=== PATIENT | male | born 1960 ===

== ENCOUNTER → 2019-07-07 | Outpatient (CLI) | payer BC, OTHER ==
[~2019-07-07] MED LIST: AMLO5 PO; ASPI81EC PO; ATOR20 PO; GLIP2.5ER PO; HUMALOG KW200 UNIT/1 SQ; HYDACE5 PO; INSLIS75I SC; INSULANPEN; LEVSOD100 PO; LOSA25 PO; METF500C PO; VITAMIN D5000 UNIT PO
[2019-07-07 17:51] LABS: Alanine Aminotransfer (ALT/SGP 38 U/L (12-78); Albumin, Blood 3.9 g/dL (3.4-5.0); Albumin/Globulin Ratio 0.8 (0.8-1.8); Alk Phos 78 U/L (40-126); Anion Gap 11 mmol/L (6-16); Aspartate Aminotrans (AST/SGOT 33 U/L (12-37); Bilirubin, Total 0.6 mg/dL (0.1-1.0); Blood Urea Nitrogen 20 mg/dL (8-24); Bun/Creatinine Ratio 19.6 (12.0-20.0); CO2, Blood 26 mmol/L (21-32); Calcium, Blood 8.9 mg/dL (8.5-10.1); Chloride, Blood 102 mmol/L (98-108); Creatinine, Blood 1.02 mg/dL (0.60-1.20); Globulin, Blood 4.7 g/dL (2.2-4.0); Glomerular Filtration Rate >60 (60-); Glucose, Blood 79 mg/dL (70-99); Potassium, Blood 3.5 mmol/L (3.5-5.5); Sodium, Blood 139 mmol/L (136-145); Total Protein, Blood 8.6 g/dL (6.4-8.2)
[2019-07-07 20:13] LABS: Microalb/Creat Ratio UR, Rand 216.993 mg/g (0.000-30.000)
== END ==
LOC: LAB SHORT 17:22 → LAB EV 17:22
PROVIDERS: Nurse Practitioner Family
DX: E11.649 Type 2 diabetes mellitus with hypoglycemia without coma (principal); Z95.2 Presence of prosthetic heart valve
CPT/HCPCS: 36415; 80053; 82043; 82570; 83036; 85610

== ENCOUNTER 2020-11-23 11:38 | Day surgery (SDC) | payer BC, OTHER ==
[~2020-11-23] VITALS: Ht 170.2 cm; Wt 91.6 kg
[~2020-11-23 11:38] MED LIST changes: +Aspir 8181 MG PO; +CAND32 PO; +CARV25 PO; +Coumadin2 MG PO; +Crestor20 MG PO; +ERGO50000 PO; +GLIP10 PO; +GLUCOPHAGE1000 M1 PO; +HYDCHL12.5 PO; +INSULANI SC; +JARDIANCE10 MG PO; +TRAM50 PO; +TRULICITY1.5 MG/0.1 SC
[2020-11-23] MEDS ORDERED: ASPI81CH (12:02)
[2020-11-23] MEDS ORDERED: ENOX40I (12:20)
== END 2020-11-23 14:04 | disposition home or self-care (01) ==
LOC: ORSCSDS 11:38
PROVIDERS: Student in an Organized Health Care Education/Training Program
PROC: 0DBK8ZX Excision of Ascending Colon, Via Natural or Artificial Opening Endoscopic, Diagnostic (ICD-10-PCS; principal; 2020-11-23 12:45)
PROC: 0DB58ZX Excision of Esophagus, Via Natural or Artificial Opening Endoscopic, Diagnostic (ICD-10-PCS; principal; 2020-11-23 12:45)
PROC: 0DBH8ZX Excision of Cecum, Via Natural or Artificial Opening Endoscopic, Diagnostic (ICD-10-PCS; principal; 2020-11-23 12:45)
PROC: 0DB68ZX Excision of Stomach, Via Natural or Artificial Opening Endoscopic, Diagnostic (ICD-10-PCS; principal; 2020-11-23 12:45)
PROC: 0DBL8ZX Excision of Transverse Colon, Via Natural or Artificial Opening Endoscopic, Diagnostic (ICD-10-PCS; principal; 2020-11-23 12:45)
PROC: 0DBN8ZX Excision of Sigmoid Colon, Via Natural or Artificial Opening Endoscopic, Diagnostic (ICD-10-PCS; principal; 2020-11-23 12:45)
PROC: 0DBP8ZX Excision of Rectum, Via Natural or Artificial Opening Endoscopic, Diagnostic (ICD-10-PCS; principal; 2020-11-23 12:45)
DX: R13.10 Dysphagia, unspecified (principal); K29.50 Unspecified chronic gastritis without bleeding; B96.81 Helicobacter pylori [H. pylori] as the cause of diseases classified elsewhere; D12.0 Benign neoplasm of cecum; D12.5 Benign neoplasm of sigmoid colon; Z12.11 Encounter for screening for malignant neoplasm of colon; Z86.010 Personal history of colon polyps; G47.33 Obstructive sleep apnea (adult) (pediatric); I10 Essential (primary) hypertension; E11.9 Type 2 diabetes mellitus without complications; Z79.82 Long term (current) use of aspirin; Z79.4 Long term (current) use of insulin; Z79.899 Other long term (current) drug therapy
CPT/HCPCS: 82947; 88305; 88342; J2704; J7120

== ENCOUNTER 2022-02-01 11:01 | Day surgery (SDC) | payer BC, OTHER ==
[~2022-02-01] VITALS: Ht 170.2 cm; Wt 82.3 kg
[~2022-02-01 11:01] MED LIST changes: +ASPI81CH PO; +ENOX40I
[2022-02-01] MEDS ORDERED: ENOX100I SC (12:02)
--- NOTE | 2022-02-01 12:31 | NUR ---
Ambulatory in Day Surgery History, Chart, Medications and Allergies reviewed before start of procedure. Lungs clear T/O to Auscultation. Pre-Op teaching done. Pt verbalizes understanding.
[2022-02-01 13:24] LABS: International Normalized Ratio 1.04; Prothrombin Time Results 10.9 Sec (9.7-11.5)
--- NOTE | 2022-02-01 18:25 | NUR ---
POST OP: REPORT RECEIVED FROM YARN EXAMINER SKEINS TAMI. PT TO UNIT AT ABOUT 1710. A/O, HTN NOTED, PT ASYMPTOMATIC. OTHERWISE VSS. PLAN TO GIVE ORDERED COREG DOSE. SURGICAL SITE WNL. PT RATES PAIN 5/10, MEDICATED PER EMAR. PT AT BEDSIDE. WILL PASS REPORT TO NOC ARLIN
[2022-02-02 05:43] LABS: BASOPHILS ABSOLUTE AUTO 0.03 K/mm3 (0.00-0.23); BASOPHILS PERCENT AUTO 0 % (0-2); EOSINOPHILS ABSOLUTE AUTO 0.01 K/mm3 (0.00-0.68); EOSINOPHILS PERCENT AUTO 0 % (0-6); Hematocrit 33.4 % (37.0-53.0); Hemoglobin 11.3 g/dL (13.5-17.5); IMMATURE GRAN ABSOLUTE AUTO 0.07 K/mm3 (0.00-0.10); IMMATURE GRAN PERCENT AUTO 1 % (0-1); LYMPHOCYTES ABSOLUTE AUTO 1.65 K/mm3 (0.84-5.20); LYMPHOCYTES PERCENT AUTO 15 % (21-46); MONOCYTES ABSOLUTE AUTO 1.06 K/mm3 (0.16-1.47); MONOCYTES PERCENT AUTO 9 % (4-13); Mean Corpuscular HGB 29.4 pg (26.0-34.0); Mean Corpuscular HGB Conc 33.8 g/dL (31.5-36.5); Mean Corpuscular Volume 87 fL (80-100); Mean Platelet Volume 10.6 fL (9.1-12.4); NEUTROPHILS ABSOLUTE AUTO 8.56 K/mm3 (1.96-9.15); NEUTROPHILS PERCENT AUTO 75 % (41-73); Platelet Count 226 K/mm3 (150-400); RDW Coefficient Variation 13.1 % (11.7-14.2); RDW Standard Deviation 41.1 fL (35.1-46.3); Red Blood Cell Count 3.84 M/mm3 (4.30-5.90); White Blood Cell Count 11.38 K/mm3 (4.00-11.30)
[2022-02-02 06:10] LABS: International Normalized Ratio 1.09; Prothrombin Time Results 11.4 Sec (9.7-11.5)
[2022-02-02 06:19] LABS: Bun/Creatinine Ratio 27.4 (12.0-20.0); Creatinine, Blood 1.06 mg/dL (0.60-1.20); Magnesium, Blood 0.9 mg/dL (1.6-2.4); Potassium, Blood 4.2 mmol/L (3.5-5.5)
--- NOTE | 2022-02-02 06:40 | NUR ---
SUMMARY PT HAS AMBULATED WITH WALKER AND ASSIST.VOIDING WITHOUT DIFF.CBGS STABLE. MAGNESIUM LEVEL REPORTED CRITICAL AT 0.[address] ALFONSO PER ORDER FOR HOSPITALIST MANAGEMENT OF MED ISSUES AND RECEIVED ORDERS FOR MAGNESIUM 2 GRMS IV .
--- NOTE | 2022-02-02 12:00 | NUR ---
DISCHARGE SUMMARY PT A&OX4, VSS/RA, MIRZA PO, VOIDING, AMB SBA FWW/GB, UP TO CHAIR, DRESSED HIMSELF WITH OT ASSIST, PAIN MANAGED. DC INS PROVIDED. PT AND SPOUSE REP UNDERSTANDING THOSE INSTRUCTIONS INCLUDING AQUACEL DRESSING CHANGES, FU WITH CARDIOLOGY RE LOVENOX BRIDGE/COUMADIN RESTART AND LABS, FU WITH SURGEON 2 WKS, OK TO SHOWER, PAIN MANAGEMENT AND OUTPT PHYSICAL THERAPY. IV DC'D. PT LEFT FLOOR VIA WC WITH SN RN TO GO HOME WITH , WITH ALL PERSONAL POSSESSIONS INCLUDING DC PACKET, AQUACEL DRESSINGS AND POLAR MERLIN.
== END 2022-02-02 11:40 | disposition home or self-care (01) ==
LOC: ORSCMMR 11:01 → ORD 14:30 → ORSCMMR 14:30 → SURS 17:26 → ORSCMMR 02-02 11:40
PROVIDERS: Orthopaedic Surgery
PROC: 0SR90JA Replacement of Right Hip Joint with Synthetic Substitute, Uncemented, Open Approach (ICD-10-PCS; principal; 2022-02-01 14:30)
DX: M16.11 Unilateral primary osteoarthritis, right hip (principal); I10 Essential (primary) hypertension; E11.9 Type 2 diabetes mellitus without complications; E03.9 Hypothyroidism, unspecified; Z79.84 Long term (current) use of oral hypoglycemic drugs; Z79.899 Other long term (current) drug therapy; Z79.82 Long term (current) use of aspirin
CPT/HCPCS: 36415; 72170; 80048; 82947; 83735; 85025; 85610; 97110; 97116; 97162; 97165; 97530; 97535; A9270; C1713; C1776; J0171; J0690; J0735; J1100; J1650; J1885; J2250; J2370; J2405; J2704; J2795; J3010; J3370; J3475; J7120

== ENCOUNTER 2022-02-12 04:03 | Observation (INO) | payer BC, OTHER ==
[~2022-02-12] VITALS: Ht 170.2 cm; Wt 87.2 kg
[~2022-02-12 04:03] MED LIST changes: +ENOX100I SC
[2022-02-12 04:40] LABS: BASOPHILS ABSOLUTE AUTO 0.03 K/mm3 (0.00-0.23); BASOPHILS PERCENT AUTO 0 % (0-2); EOSINOPHILS PERCENT AUTO 1 % (0-6); Hematocrit 18.3 % (37.0-53.0); Hemoglobin 6.1 g/dL (13.5-17.5); IMMATURE GRAN PERCENT AUTO 1 % (0-1); LYMPHOCYTES PERCENT AUTO 12 % (21-46); MONOCYTES ABSOLUTE AUTO 0.84 K/mm3 (0.16-1.47); MONOCYTES PERCENT AUTO 6 % (4-13); Mean Corpuscular HGB 29.9 pg (26.0-34.0); Mean Corpuscular HGB Conc 33.3 g/dL (31.5-36.5); Mean Corpuscular Volume 90 fL (80-100); Mean Platelet Volume 8.8 fL (9.1-12.4); NEUTROPHILS ABSOLUTE AUTO 10.95 K/mm3 (1.96-9.15); NEUTROPHILS PERCENT AUTO 80 % (41-73); Platelet Count 743 K/mm3 (150-400); RDW Coefficient Variation 13.8 % (11.7-14.2); Red Blood Cell Count 2.04 M/mm3 (4.30-5.90); White Blood Cell Count 13.72 K/mm3 (4.00-11.30)
[2022-02-12 04:55] LABS: International Normalized Ratio 2.08; Prothrombin Time Results 20.8 Sec (9.7-11.5)
[2022-02-12 04:59] LABS: Albumin/Globulin Ratio 0.7 (0.8-1.8); Bilirubin, Total 1.1 mg/dL (0.1-1.0); Bun/Creatinine Ratio 27.5 (12.0-20.0); Calcium, Blood 9.1 mg/dL (8.5-10.1); Creatinine, Blood 1.09 mg/dL (0.60-1.20); Globulin, Blood 4.2 g/dL (2.2-4.0); Potassium, Blood 4.7 mmol/L (3.5-5.5); Total Protein, Blood 7.2 g/dL (6.4-8.2)
--- NOTE | 2022-02-12 14:25 | NUR ---
PT ARRIVED FROM ER TO ROOM 214 AT APPROXIMATELY 1410. PT ALERT ORIENTED AND PLEASANT. PT RATES PAIN AT 4/10 AND DESCRIBES PAIN SORENESS, PT STATES PAIN IS TOLERABLE. PRBCs STARTED IN ER AND RUNNING AT THIS TIME. VSS. WILL CONTINUE TO MONITOR.
--- NOTE | 2022-02-12 15:18 | NUR ---
UNIT OF PRBC COMPLETED. PT TOLERATED WELL. DR. PLUMMER AT THE BEDSIDE. WILL CONTINUE TO MONITOR.
[2022-02-12] MEDS ORDERED: MAGNESIUM GLU27.5 M1 PO (16:59)
[2022-02-12 17:25] LABS: Hematocrit 24.6 % (37.0-53.0); Hemoglobin 8.3 g/dL (13.5-17.5)
--- NOTE | 2022-02-12 19:20 | NUR ---
SHIFT SUMMARY PT ADMITTED FOR A POST-OP HEMATOMA. PAIN HAS BEEN MANAGED WITH PERCOCET SINCE ADMIT. PT IS ON BEDREST UNTIL HE CAN BE EVALUATED TOMORROW MORNING FOR POSSIBLE SURGERY. PT WILL BE NPO AFTER MIDNIGHT. REPORT GIVEN TO DIA OLIVEROS.
[2022-02-13 04:09] LABS: BASOPHILS ABSOLUTE AUTO 0.03 K/mm3 (0.00-0.23); BASOPHILS PERCENT AUTO 0 % (0-2); EOSINOPHILS ABSOLUTE AUTO 0.16 K/mm3 (0.00-0.68); EOSINOPHILS PERCENT AUTO 2 % (0-6); Hematocrit 23.3 % (37.0-53.0); Hemoglobin 7.7 g/dL (13.5-17.5); IMMATURE GRAN ABSOLUTE AUTO 0.07 K/mm3 (0.00-0.10); IMMATURE GRAN PERCENT AUTO 1 % (0-1); LYMPHOCYTES ABSOLUTE AUTO 2.49 K/mm3 (0.84-5.20); LYMPHOCYTES PERCENT AUTO 25 % (21-46); MONOCYTES ABSOLUTE AUTO 0.98 K/mm3 (0.16-1.47); MONOCYTES PERCENT AUTO 10 % (4-13); Mean Corpuscular HGB 30.1 pg (26.0-34.0); Mean Corpuscular Volume 91 fL (80-100); Mean Platelet Volume 8.4 fL (9.1-12.4); NEUTROPHILS ABSOLUTE AUTO 6.19 K/mm3 (1.96-9.15); NEUTROPHILS PERCENT AUTO 62 % (41-73); NRBC ABSOLUTE 0.02 K/mm3 (0.00-0.02); NRBC Auto 0.2 /100 WBC (0.0-0.2); Platelet Count 670 K/mm3 (150-400); RDW Coefficient Variation 14.5 % (11.7-14.2); RDW Standard Deviation 46.4 fL (35.1-46.3); Red Blood Cell Count 2.56 M/mm3 (4.30-5.90); White Blood Cell Count 9.92 K/mm3 (4.00-11.30)
[2022-02-13 04:26] LABS: International Normalized Ratio 1.81; Prothrombin Time Results 18.3 Sec (9.7-11.5)
[2022-02-13 04:27] LABS: Bun/Creatinine Ratio 29.3 (12.0-20.0); Calcium, Blood 8.8 mg/dL (8.5-10.1); Creatinine, Blood 0.96 mg/dL (0.60-1.20); Potassium, Blood 4.2 mmol/L (3.5-5.5)
--- NOTE | 2022-02-13 04:27 | NUR ---
SUMMARY NO NEW ISSUES NOTED. PT PAIN MANAGED WELL THIS SHIFT. PT HAS SLEPT COMFORTABLY FOR MOST OF SHIFT. PT HAS BEEN VOIDING WELL. PT CURRENTLY SLEEPING IN NO DISTRESS. CALL LIGHT IN REACH.
--- NOTE | 2022-02-13 18:16 | NUR ---
SHIFT SUMMARY POD0 R HIP I&D TO CLEAR OUT HEMATOMA FROM POST OP R KYLAH DURING PRIOR ADMIT, A/OX4, VSS, TOLERATING PO POST OP, PAIN TOLERABLE SINCE ARRIVING BACK FROM PACU. R HIP c HEMOVAC IN PLACE, INCISION COVERED WITH GAUZE AND COMPRESSION TAPE, SMALL AMT OF BLOOD IN HEMOVAC CONTAINER TO BE DRAINED AND CHARTED Q8. PT AT BEDSIDE ASSISTING WITH DINNER WHICH WAS TOLERATED WELL. NO ACUTE EVENTS THIS SHIFT, CALL LIGHT IN REACH, WILL CTM AND REPORT TO ONCOMING NOC RN.
--- NOTE | 2022-02-14 05:37 | NUR ---
SUMMARY PT DENIES PAIN. PT HAS RESTED CPMFORTABLY THROUGHOUT SHIFT. PT HEMOVAC IS DRAINING SANGUINOUS FLUID. DRESSING C/D/I. PT VOIDING WELL.
[2022-02-14 06:01] LABS: International Normalized Ratio 1.41; Prothrombin Time Results 14.5 Sec (9.7-11.5)
[2022-02-14 06:04] LABS: BASOPHILS ABSOLUTE AUTO 0.06 K/mm3 (0.00-0.23); BASOPHILS PERCENT AUTO 1 % (0-2); EOSINOPHILS ABSOLUTE AUTO 0.02 K/mm3 (0.00-0.68); EOSINOPHILS PERCENT AUTO 0 % (0-6); Hematocrit 23.5 % (37.0-53.0); Hemoglobin 7.6 g/dL (13.5-17.5); IMMATURE GRAN ABSOLUTE AUTO 0.13 K/mm3 (0.00-0.10); IMMATURE GRAN PERCENT AUTO 1 % (0-1); LYMPHOCYTES ABSOLUTE AUTO 1.98 K/mm3 (0.84-5.20); LYMPHOCYTES PERCENT AUTO 16 % (21-46); MONOCYTES ABSOLUTE AUTO 0.96 K/mm3 (0.16-1.47); MONOCYTES PERCENT AUTO 8 % (4-13); Mean Corpuscular HGB 30.3 pg (26.0-34.0); Mean Corpuscular HGB Conc 32.3 g/dL (31.5-36.5); Mean Corpuscular Volume 94 fL (80-100); Mean Platelet Volume 8.8 fL (9.1-12.4); NEUTROPHILS ABSOLUTE AUTO 9.06 K/mm3 (1.96-9.15); NEUTROPHILS PERCENT AUTO 74 % (41-73); Platelet Count 759 K/mm3 (150-400); RDW Coefficient Variation 14.3 % (11.7-14.2); RDW Standard Deviation 46.5 fL (35.1-46.3); Red Blood Cell Count 2.51 M/mm3 (4.30-5.90); White Blood Cell Count 12.21 K/mm3 (4.00-11.30)
[2022-02-14 06:13] LABS: Bun/Creatinine Ratio 35.3 (12.0-20.0); C-REACTIVE PROTEIN, EXT RANGE 8.77 mg/dL (0.000-0.300); Calcium, Blood 8.5 mg/dL (8.5-10.1); Creatinine, Blood 1.16 mg/dL (0.60-1.20); Magnesium, Blood 2.2 mg/dL (1.6-2.4); Potassium, Blood 4.3 mmol/L (3.5-5.5)
[2022-02-14] MEDS ORDERED: LINE600 PO (11:04)
--- NOTE | 2022-02-14 14:31 | NUR ---
DISCHARGE SUMMARY POD1 R HIP WASHOUT, A/OX4, VSS, TOLERATING PO, AMBULATING c FWW/GB, MINIMAL PAIN MANAGED PER EMAR, SKIN C/D/I, DRESSING CHANGED THIS MORNING BY SURGEON, HEMOVAC REMOVED BY SURGEON DURING DRESSING CHANGE, GENERALIZED EDEMA BLE, DISTAL PULSES PRESENT, LUNGS CLEAR T/O. DISCUSSED DISCHARGE INFORMATION WITH THE PT AND HIS INCLUDING MEDICATIONS EMPHASIZING HIM RESTARTING HIS COUMADIN TODAY, HOME CARE c DRESSING CHANGES AND EXTRA DRESSINGS PROVIDED, AND FOLLOW UP APPOINTMENTS. ALSO DISCUSSED POSTERIOR HIP PRECAUTIONS. IV ACCESS REMOVED, PT ESCORTED OUT VIA WC TO GO HOME.
== END 2022-02-14 11:39 | disposition home or self-care (01) ==
LOC: ER 04:03 → SURS 04:04
PROVIDERS: Emergency Medicine; Orthopaedic Surgery; ADMIT Internal Medicine
DX: M96.840 Postprocedural hematoma of a musculoskeletal structure following a musculoskeletal system procedure (principal); E11.9 Type 2 diabetes mellitus without complications; E03.9 Hypothyroidism, unspecified; I10 Essential (primary) hypertension; D50.0 Iron deficiency anemia secondary to blood loss (chronic); Y83.8 Other surgical procedures as the cause of abnormal reaction of the patient, or of later complication, without mention of misadventure at the time of the procedure; Z79.01 Long term (current) use of anticoagulants; Z79.82 Long term (current) use of aspirin; Z79.84 Long term (current) use of oral hypoglycemic drugs; Z96.643 Presence of artificial hip joint, bilateral; Z86.19 Personal history of other infectious and parasitic diseases; Z95.2 Presence of prosthetic heart valve
CPT/HCPCS: 36415; 36430; 73502; 73701; 80048; 80053; 82947; 83735; 85014; 85018; 85025; 85610; 85651; 86140; 86850; 86900; 86901; 86923; 87071; 87075; 87205; 93971; 96374-59; 96375-59; 97110; 97116; 97162; 97165; 97530; 97535; 99285-25; A9270; J0690; J1170; J1650; J1885; J2250; J2405; J2704; J3010; J3370; J7030; J7120; P9016; Q9967

== ENCOUNTER 2023-03-03 11:12 | Emergency (ER) | payer BC, OTHER ==
[~2023-03-03] VITALS: Ht 170.2 cm; Wt 83.9 kg
[~2023-03-03 11:12] MED LIST changes: +LINE600 PO; +MAGNESIUM GLU27.5 M1 PO
[2023-03-03 11:17] VITALS: BP 195/79
[2023-03-03 13:09] LABS: International Normalized Ratio 3.93; Prothrombin Time Results 38.2 Sec (9.7-11.5)
== END 2023-03-03 13:20 | disposition home or self-care (01) ==
LOC: ER 11:12
PROVIDERS: Physician Assistant
DX: H11.31 Conjunctival hemorrhage, right eye (principal); R79.1 Abnormal coagulation profile; R31.9 Hematuria, unspecified; H11.421 Conjunctival edema, right eye; Z79.899 Other long term (current) drug therapy; Z79.890 Hormone replacement therapy; Z79.82 Long term (current) use of aspirin; Z79.84 Long term (current) use of oral hypoglycemic drugs; Z79.01 Long term (current) use of anticoagulants; Z96.641 Presence of right artificial hip joint
CPT/HCPCS: 85610; 99282

== ENCOUNTER 2024-10-08 10:48 | Day surgery (SDC) | payer BC, OTHER ==
[~2024-10-08] VITALS: Ht 170.2 cm; Wt 85.8 kg
[~2024-10-08 10:48] MED LIST changes: +Lactated Ringer's 1,000 ML IV ONE; +propofoL 50 ML IV ONE
[2024-10-08] MEDS ORDERED: Lactated Ringer's 1,000 ML IV ONE (11:43)
[2024-10-08 13:45] VITALS: BP 108/60
== END 2024-10-08 13:17 | disposition home or self-care (01) ==
LOC: ORSCSDS 10:48
PROVIDERS: Internal Medicine Gastroenterology
PROC: 0DBM8ZX Excision of Descending Colon, Via Natural or Artificial Opening Endoscopic, Diagnostic (ICD-10-PCS; principal; 2024-10-08 12:15)
PROC: 0DBK8ZX Excision of Ascending Colon, Via Natural or Artificial Opening Endoscopic, Diagnostic (ICD-10-PCS; principal; 2024-10-08 12:15)
DX: Z12.11 Encounter for screening for malignant neoplasm of colon (principal); Z86.0101 Personal history of adenomatous and serrated colon polyps; D12.2 Benign neoplasm of ascending colon; D12.4 Benign neoplasm of descending colon; Q27.30 Arteriovenous malformation, site unspecified; E11.9 Type 2 diabetes mellitus without complications; I10 Essential (primary) hypertension; E03.9 Hypothyroidism, unspecified; Z79.84 Long term (current) use of oral hypoglycemic drugs; Z79.899 Other long term (current) drug therapy; Z79.82 Long term (current) use of aspirin; Z79.01 Long term (current) use of anticoagulants
CPT/HCPCS: 82947; 88305; J2704; J7120